=== PATIENT | female | born 1980 | race Caucasian/White ===

== ENCOUNTER 2016-09-22 18:29 | Emergency (ER) | payer BC ==
[2016-09-22] MEDS ORDERED: IV NORMAL SALINE 1000ML BAG 1,000 ML IV ONE (19:30)
[2016-09-22] MEDS ORDERED: ONDANSETRON PF 4 MG/2 ML VIAL. IV ONE (19:30)
[2016-09-22] MEDS ORDERED: HYDROMORPHONE 2 MG/ML VIAL. IV PRN (19:30)
[2016-09-22] MEDS: FENTANYL PF 100 MCG/2 ML VIAL. IV PRN ×2 (19:40→20:12)
[2016-09-22 19:45] LABS: NEG OBC UR NEG; POS OBC UR POS
[2016-09-22 19:47] LABS: BILIRUBIN,URINE NEGATIVE (NEG); GLUCOSE,URINE NEGATIVE (NEG); NITRITE,URINE NEGATIVE (NEG); PH,URINE 7.5; PROTEIN,URINE NEGATIVE (NEG-TRACE)
[2016-09-22] MEDS: HYDROMORPHONE 2 MG/ML VIAL. IV PRN ×2 (19:56→20:43)
[2016-09-22 20:03] LABS: BACTERIA,URINE 0 /HPF (0-FEW); RBC,URINE TNTC /HPF (0-2); SQUAMOUS EPITHELIAL CELL,UR MANY /LPF; WBC,URINE 0 /HPF (0-4)
[2016-09-22] MEDS ORDERED: HYDR-2666 PO (20:18)
--- NOTE | 2016-09-22 20:18 | PHYS DOC ---
Past Medical History Past Medical History: Other Additional Past Medical Histor: kidney stones Past Surgical History: Other Additional Past Surgical Histo: nephrostomy, left wrist Alcohol Use: None Drug Use: None Adult General Chief Complaint Chief Complaint: FLANK PAIN HPI HPI 36-year-old female presenting to the emergency department with right flank pain. Her pain is sharp severe intermittent and associated with mild hematuria. The pain radiates to the right groin. She was seen a few days ago in an urgent care and diagnosed with multiple kidney stones less than 5 mm. She denies nausea vomiting fevers or chills. Review of systems is negative for fevers chills chest pain shortness of breath. All other review of systems is negative unless otherwise noted in history of present illness. Review of Systems Review of Systems See above. Current Medications Current Medications Current Medications Medications (Trade) Dose Ordered Sig/Sheba Start Time Stop Time Status Last Admin Dose Admin Fentanyl Citrate (Fentanyl 2ml Vial) 50 mcg PRN Q30MIN PRN 09/22/16 19:30 09/22/16 20:12 50 MCG Hydromorphone HCl (Dilaudid) 0.5 mg PRN Q30MIN PRN 09/22/16 19:50 09/22/16 19:56 0.5 MG Ondansetron HCl 4 mg 4 mg 1X ONCE 09/22/16 19:30 09/22/16 19:31 DC 09/22/16 19:25 4 MG Sodium Chloride (Iv Sodium Chloride 0.9% 1000ml Bag) 1,000 ml @ 1,000 mls/hr 1X ONCE 09/22/16 19:30 09/22/16 20:29 DC 09/22/16 19:26 1,000 MLS/HR Allergies Allergies Allergies Coded Allergies Type Severity Reaction Last Updated Verified No Known Drug Allergies 07/17/14 No Physical Exam Physical Exam Constitutional: Well developed, well nourished, no acute distress, non-toxic appearance. [] HENT: Normocephalic, atraumatic, bilateral external ears normal, oropharynx moist, no oral exudates, nose normal. [] Eyes: PERRLA, EOMI, conjunctiva normal, no discharge. [] Neck: Normal range of motion, no tenderness, supple, no stridor. [] Cardiovascular:Heart rate regular rhythm, no murmur [] Lungs & Thorax: Bilateral breath sounds clear to auscultation [] Abdomen: Bowel sounds normal, soft, no tenderness, no masses, no pulsatile masses. [] Skin: Warm, dry, no erythema, no rash. [] Back: No tenderness, right cva tenderness Extremities: No tenderness, no cyanosis, no clubbing, ROM intact, no edema. [] Neurologic: Alert and oriented X 3, normal motor function, normal sensory function, no focal deficits noted. [] Psychologic: Affect normal, judgement normal, mood normal. [] Current Patient Data Vital Signs Vital Signs Date Time Temp Pulse Resp B/P Pulse Ox O2 Delivery O2 Flow Rate FiO2 09/22/16 20:20 96 20 123/83 96 Room Air 09/22/16 18:55 97.8 97.8 Lab Values Laboratory Tests Test 09/22/16 18:55 Urine Collection Type Unknown Urine Color Sobia Urine Clarity Cloudy Urine pH 7.5 Urine Specific [place] 1.025 Urine Protein Negativemg/dL (NEG-TRACE) Urine Glucose (UA) Negativemg/dL (NEG) Urine Ketones (Stick) Negativemg/dL (NEG) Urine Blood Large (NEG) Urine Nitrite Negative (NEG) Urine Bilirubin Negative (NEG) Urine Urobilinogen Dipstick 1.0mg/dL (0.2 mg/dL) Urine Leukocyte Esterase Trace (NEG) Urine RBC Tntc/HPF (0-2) Urine WBC 0/HPF (0-4) Urine Squamous Epithelial Cells Many/LPF Urine Bacteria 0/HPF (0-FEW) Urine Mucus Marked/LPF Urine Test Negative (NEG) EKG EKG [] Radiology/Procedures Radiology/Procedures [] Course & Med Decision Making Course & Med Decision Making Pertinent Labs and Imaging studies reviewed. (See chart for details) [] 36-year-old female presenting to the emergency department with flank pain and a history of nephrolithiasis. Vital signs showed tachycardia likely secondary to pain. Physical exam showed right CVA tenderness. Her pain was controlled with IV pain medications fluids. Urine testing was negative for . On reevaluation her pain improved she was subsequently discharged home with oral pain medication to follow-up with her primary care doctor over the next 2-3 days. Dragon Disclaimer Dragon Disclaimer This electronic medical record was generated, in whole or in part, using a voice recognition dictation system. Departure Departure Impression: Primary Impression: Flank pain Disposition: 01 HOME, SELF-CARE Condition: STABLE Referrals: NO PCP (PCP) MAE VICKERS MD Patient Instructions: Flank Pain Additional Instructions: Thank you for allowing us to participate in your care today. Followup with your primary care physician in 3 days if your symptoms do not improve. If you do not have a primary care provider you can ask for a list of our primary care providers. Return to the emergency department you have any new or concerning findings. This should be evaluated by the primary care physician and any necessary consulting services for continued management within a few days after discharge. Return to emergency room if you have any new or concerning symptoms including but not limited to fever, chills, nausea, vomiting, intractable pain, any new rashes, chest pain, shortness of air, uncontrolled bleeding, difficulty breathing, and/or vision loss. You may have been prescribed medication that can change in your level of thinking and ability to operate machinery. These medications include hydrocodone and Ativan. Also, Benadryl has been known to do this as well. Be sure to check with your pharmacist and ask if the medications you've prescribed can affect your level of consciousness. I recommend not operating heavy machinery or driving while on medication such as these. Scripts Hydrocodone Bit/Acetaminophen (Hydrocodone-Apap 5-325 )1 Each Tablet1 Tab PO PRN Q6HRS PRN PAIN #15 TAB Be careful as this medication may cause you to be drowsy or tired. Do not drive on this medication. Do not fill this medication if the patient has been prescribed opioids in the past 5 days. Prov:KENYON REGALADO MD 09/22/16 KENYON REGALADO MD Sep 22, 2016 20:18
[2016-09-22 20:20] VITALS: BP 123/83
== END 2016-09-22 21:03 | disposition home or self-care (01) ==
LOC: ER 18:29
DX: R10.9 Unspecified abdominal pain (principal); R31.9 Hematuria, unspecified; R00.0 Tachycardia, unspecified; Z87.442 Personal history of urinary calculi
CPT/HCPCS: 81001; 81025; 87086; 96361; 96374; 96375; 96376; 99285; J1170; J2405; J3010; J7030

== ENCOUNTER 2016-10-05 09:21 | Emergency (ER) | payer BC ==
[~2016-10-05 09:21] MED LIST: HYDR-2666 PO
[2016-10-05] MEDS ORDERED: IV NORMAL SALINE 1000ML BAG 1,000 ML IV SCH (10:10)
[2016-10-05] MEDS ORDERED: FENTANYL PF 100 MCG/2 ML VIAL. IV ONE (10:15)
[2016-10-05 10:42] LABS: BILIRUBIN,URINE NEGATIVE (NEG); GLUCOSE,URINE NEGATIVE (NEG); NITRITE,URINE NEGATIVE (NEG); PROTEIN,URINE NEGATIVE (NEG-TRACE); UROBILINOGEN,URINE 0.2 mg/dL (0.2 mg/dL)
[2016-10-05 10:48] LABS: NEG OBC UR NEG; POS OBC UR POS
[2016-10-05 10:55] LABS: BACTERIA,URINE MANY /HPF (0-FEW); RBC,URINE TNTC /HPF (0-2); SQUAMOUS EPITHELIAL CELL,UR MANY /LPF
[2016-10-05 11:05] VITALS: BP 112/68
[2016-10-05] MEDS ORDERED: KETOROLAC TROMETHAMINE 30 MG/ML SYRINGE. IV ONE (11:15)
[2016-10-05 11:20] LABS: BASO % 0 % (0-3); EOS % 1 % (0-3); HEMATOCRIT 39.7 % (36.0-47.0); HEMOGLOBIN 13.2 g/dL (12.0-15.5); LYMPH # 1.7 x10^3/uL (1.0-4.8); LYMPH % 19 % (24-48); MEAN CORPUSCULAR HEMOGLOBIN 31 pg (25-35); MEAN CORPUSCULAR HGB CONC 33 g/dL (31-37); MEAN CORPUSCULAR VOLUME 92 fL (79-100); MONO % 4 % (0-9); NEUT % 77 % (31-73); PLATELET COUNT 215 x10^3/uL (140-400); RED BLOOD COUNT 4.33 x10^6/uL (3.50-5.40); RED CELL DISTRIBUTION WIDTH 14.3 % (11.5-14.5); WHITE BLOOD COUNT 9.2 x10^3/uL (4.0-11.0)
[2016-10-05 11:31] LABS: CALCIUM 8.4 mg/dL (8.5-10.1); CREATININE 0.7 mg/dL (0.6-1.0); GFR 94.7; POTASSIUM 3.8 mmol/L (3.5-5.1)
[2016-10-05 11:37] LABS: ALBUMIN 3.8 g/dL (3.4-5.0); ALBUMIN/GLOBULIN RATIO 1.1 (1.0-1.7); TOTAL BILIRUBIN 0.2 mg/dL (0.2-1.0); TOTAL PROTEIN 7.2 g/dL (6.4-8.2)
--- NOTE | 2016-10-05 11:42 | PHYS DOC ---
Past Medical History Past Medical History: Other Additional Past Medical Histor: kidney stones Past Surgical History: Other Additional Past Surgical Histo: nephrostomy, left wrist Alcohol Use: None Drug Use: None Adult General Chief Complaint Chief Complaint: ABDOMINAL PAIN HPI HPI Patient is a 36 year old female who reports right flank pain for two days. States she was recently seen and diagnosed with 3 kidney stones and she has passed two but not the third. Reports vomiting yesterday without fever, dysuria , abdominal pain. No intervenitons prior to arrival. States Dr. Ireland is urologist Review of Systems Review of Systems Constitutional: Denies fever or chills Eyes: Denies change in visual acuity, redness, or eye pain HENT: Denies nasal congestion or sore throat Respiratory: Denies cough or shortness of breath Cardiovascular: No additional information not addressed in HPI GI: Denies abdominal pain, nausea, vomiting, bloody stools or diarrhea : Denies dysuria or hematuria. Flank pain Musculoskeletal: Denies back pain or joint pain Integument: Denies rash or skin lesions Neurologic: Denies headache, focal weakness or sensory changes Endocrine: Denies polyuria or polydipsia Current Medications Current Medications Current Medications Medications (Trade) Dose Ordered Sig/Sheba Start Time Stop Time Status Last Admin Dose Admin Fentanyl Citrate 50 mcg 50 mcg 1X ONCE 10/05/16 10:15 10/05/16 10:16 DC 10/05/16 10:19 50 MCG Hydromorphone HCl (Dilaudid) 1 mg 1X ONCE 10/05/16 11:45 10/05/16 11:54 DC Ketorolac Tromethamine (Toradol) 30 mg 1X ONCE 10/05/16 11:15 10/05/16 11:16 DC 10/05/16 11:07 30 MG Ondansetron HCl (Zofran) 4 mg 1X ONCE 10/05/16 11:45 10/05/16 11:46 DC Sodium Chloride (Iv Sodium Chloride 0.9% 1000ml Bag) 1,000 ml @ 1,000 mls/hr Q1H 10/05/16 10:10 10/05/16 11:09 DC 10/05/16 10:19 1,000 MLS/HR Allergies Allergies Allergies Coded Allergies Type Severity Reaction Last Updated Verified No Known Drug Allergies 07/17/14 No Physical Exam Physical Exam Constitutional: Well developed, well nourished, no acute distress, non-toxic appearance. HENT: Normocephalic, atraumatic, bilateral external ears normal, oropharynx moist, no oral exudates, nose normal. Eyes: PERRLA, EOMI, conjunctiva normal, no discharge. Neck: Normal range of motion, no tenderness, supple, no stridor. Lungs & Thorax: Bilateral breath sounds clear to auscultation Abdomen: Bowel sounds normal, soft, no tenderness, no masses, no pulsatile masses. Skin: Warm, dry, no erythema, no rash. Back: No tenderness. B/l CVA tenderness. Extremities: No tenderness, no cyanosis, no clubbing, ROM intact, no edema. [] Neurologic: Alert and oriented X 3, normal motor function, normal sensory function, no focal deficits noted. [] Psychologic: Affect normal, judgement normal, mood normal. [] Current Patient Data Vital Signs Vital Signs Date Time Temp Pulse Resp B/P Pulse Ox O2 Delivery O2 Flow Rate FiO2 10/05/16 11:05 90 20 112/68 98 Room Air 10/05/16 09:25 98.7 98.7 Lab Values Laboratory Tests Test 10/05/16 09:40 10/05/16 11:10 Urine Collection Type Unknown Urine Color [place] Urine Clarity Cloudy Urine pH 6.0 Urine Specific [place] 1.025 Urine Protein Negativemg/dL (NEG-TRACE) Urine Glucose (UA) Negativemg/dL (NEG) Urine Ketones (Stick) Negativemg/dL (NEG) Urine Blood Large (NEG) Urine Nitrite Negative (NEG) Urine Bilirubin Negative (NEG) Urine Urobilinogen Dipstick 0.2mg/dL (0.2 mg/dL) Urine Leukocyte Esterase Trace (NEG) Urine RBC Tntc/HPF (0-2) Urine WBC 1-4/HPF (0-4) Urine Squamous Epithelial Cells Many/LPF Urine Bacteria Many/HPF (0-FEW) Urine Mucus Marked/LPF Urine Test Negative (NEG) White Blood Count 9.2x10^3/uL (4.0-11.0) Red Blood Count 4.33x10^6/uL (3.50-5.40) Hemoglobin 13.2g/dL (12.0-15.5) Hematocrit 39.7% (36.0-47.0) Mean Corpuscular Volume 92fL (79-100) Mean Corpuscular Hemoglobin 31pg (25-35) Mean Corpuscular Hemoglobin Concent 33g/dL (31-37) Red Cell Distribution Width 14.3% (11.5-14.5) Platelet Count 215x10^3/uL (140-400) Neutrophils (%) (Auto) 77% (31-73) H Lymphocytes (%) (Auto) 19% (24-48) L Monocytes (%) (Auto) 4% (0-9) Eosinophils (%) (Auto) 1% (0-3) Basophils (%) (Auto) 0% (0-3) Neutrophils # (Auto) 7.1x10^3uL (1.8-7.7) Lymphocytes # (Auto) 1.7x10^3/uL (1.0-4.8) Monocytes # (Auto) 0.4x10^3/uL (0.0-1.1) Eosinophils # (Auto) 0.1x10^3/uL (0.0-0.7) Basophils # (Auto) 0.0x10^3/uL (0.0-0.2) Sodium Level 143mmol/L (136-145) Potassium Level 3.8mmol/L (3.5-5.1) Chloride Level 107mmol/L (98-107) Carbon Dioxide Level 25mmol/L (21-32) Anion Gap 11 (6-14) Blood Urea Nitrogen 12mg/dL (7-20) Creatinine 0.7mg/dL (0.6-1.0) Estimated GFR (Cockcroft-Gault) 94.7 BUN/Creatinine Ratio 17 (6-20) Glucose Level 93mg/dL (70-99) Calcium Level 8.4mg/dL (8.5-10.1) L Total Bilirubin 0.2mg/dL (0.2-1.0) Aspartate Amino Transferase (AST) 17U/L (15-37) Alanine Aminotransferase (ALT) 41U/L (14-59) Alkaline Phosphatase 71U/L (46-116) Total Protein 7.2g/dL (6.4-8.2) Albumin 3.8g/dL (3.4-5.0) Albumin/Globulin Ratio 1.1 (1.0-1.7) Laboratory Tests 10/05/16 11:10 Laboratory Tests 10/05/16 11:10 EKG EKG [] Radiology/Procedures Radiology/Procedures [] Impressions: 1. Elopement Course & Med Decision Making Course & Med Decision Making Pertinent Labs and Imaging studies reviewed. (See chart for details) 1131- Patient eloped. Throughout stay patient had multiple requests for pain medication. When discussed Toradol for mgmt, patient stated that never works. It was approx 5 mintues after I notified patient of CT she left the department. Dragon Disclaimer Dragon Disclaimer This electronic medical record was generated, in whole or in part, using a voice recognition dictation system. Departure Departure Impression: Primary Impression: Left against medical advice Disposition: 07 AGAINST MEDICAL ADVICE Referrals: NO PCP (PCP) DAMARIS HERNANDEZ APRN Oct 05, 2016 11:42
[2016-10-05] MEDS ORDERED: HYDROMORPHONE 2 MG/ML VIAL. IV ONE (11:45)
[2016-10-05] MEDS ORDERED: ONDANSETRON PF 4 MG/2 ML VIAL. IV ONE (11:45)
== END 2016-10-05 11:35 | disposition left against medical advice (07) ==
LOC: ER 09:21
DX: R10.9 Unspecified abdominal pain (principal); R11.10 Vomiting, unspecified; Z93.6 Other artificial openings of urinary tract status
CPT/HCPCS: 36415; 80053; 81001; 81025; 85027; 87086; 96361; 96374; 96375; 99284; J1885; J3010; J7030

== ENCOUNTER 2017-03-25 12:19 | Emergency (ER) | payer BC ==
[~2017-03-25] VITALS: Ht 180.3 cm; Wt 68.0 kg
[~2017-03-25 12:19] MED LIST changes: -HYDR-2666 PO; +HYDR-2758 PO
[2017-03-25 12:29] VITALS: BP 103/78
[2017-03-25 12:54] LABS: BILIRUBIN,URINE NEGATIVE (NEG); GLUCOSE,URINE NEGATIVE (NEG); NITRITE,URINE NEGATIVE (NEG); PROTEIN,URINE NEGATIVE (NEG-TRACE); UROBILINOGEN,URINE 0.2 mg/dL (0.2 mg/dL)
--- NOTE | 2017-03-25 13:03 | PHYS DOC ---
Past Medical History Past Medical History: Other Additional Past Medical Histor: kidney stones Past Surgical History: Other Additional Past Surgical Histo: nephrostomy, left wrist Alcohol Use: None Drug Use: None Adult General Chief Complaint Chief Complaint: FLANK PAIN HPI HPI Patient is a 36 year old female who presents ambulatory to the emergency department with the complaint of right flank pain since this morning. Patient states "I've got some kidney stone trouble". She states she has a history of kidney stones and has passed many kidney stones. She states that she just saw her urologist, Dr. Ireland, 2 days ago for a check. She was doing okay at that time. States he did an ultrasound in the office and said that she had some small kidney stones on the right that might pass soon or not so soon. Patient states last night [place]. She believe she probably is a little dehydrated. She started having some right flank pain this morning. She took 4 ibuprofen at 9:30 this morning area she passed one kidney stone at home and states that when she gave a urine sample, she did pass one here in the emergency department. Patient denies fever or chills. She's had some nausea and vomiting this morning. Patient denies the possibility of , she has had a uterine ablation and does not have menstrual periods, also her has had a vasectomy. Patient states that her parents drove her here today. Review of Systems Review of Systems Constitutional: Denies fever or chills [] Respiratory: Denies cough or shortness of breath [] GI: As in history of present illness : As in history of present illness Musculoskeletal: She complains of back pain but it is flank/groin in nature, not musculoskeletal pain. Allergies Allergies Allergies Coded Allergies Type Severity Reaction Last Updated Verified No Known Drug Allergies 07/17/14 No Physical Exam Physical Exam Constitutional: Well developed, well nourished, no acute distress, non-toxic appearance. Alert, mentating normally, appears somewhat agitated, pacing about, slightly diaphoretic, no vomiting or dry heaving while I was in the room. HENT: Normocephalic, atraumatic, bilateral external ears normal, nose normal. [ ] Eyes: conjunctiva normal, no discharge. [] Neck: Normal range of motion, no stridor. [] Cardiovascular:Heart rate regular rhythm, no murmur [] Lungs & Thorax: Bilateral breath sounds clear to auscultation [] Abdomen: Bowel sounds normal, soft, no tenderness, no masses, no pulsatile masses. [] Skin: Warm, dry, no erythema, no rash. [] Extremities: No tenderness, no cyanosis, no clubbing, ROM intact, no edema. [] Neurologic: Alert and oriented X 3, normal motor function, normal sensory function, no focal deficits noted. [] Current Patient Data Vital Signs Vital Signs Date Time Temp Pulse Resp B/P (MAP) Pulse Ox O2 Delivery O2 Flow Rate FiO2 03/25/17 12:29 98.6 122 24 103/78 (86) 99 Room Air 98.6 Lab Values Laboratory Tests Test 03/25/17 11:42 03/25/17 12:29 POC Urine HCG, Qualitative Hcg negative (Negative) Urine Collection Type Unknown Urine Color Yellow Urine Clarity Cloudy Urine pH 6.0 Urine Specific [place] 1.020 Urine Protein Negative mg/dL (NEG-TRACE) Urine Glucose (UA) Negative mg/dL (NEG) Urine Ketones (Stick) Negative mg/dL (NEG) Urine Blood Large (NEG) Urine Nitrite Negative (NEG) Urine Bilirubin Negative (NEG) Urine Urobilinogen Dipstick 0.2 mg/dL (0.2 mg/dL) Urine Leukocyte Esterase Moderate (NEG) Urine RBC Tntc /HPF (0-2) Urine WBC 0 /HPF (0-4) Urine Squamous Epithelial Cells Many /LPF Urine Bacteria Few /HPF (0-FEW) EKG EKG [] Radiology/Procedures Radiology/Procedures [] Course & Med Decision Making Course & Med Decision Making Pertinent Labs and Imaging studies reviewed. (See chart for details) 36-year-old female presents with right flank pain since this morning, states that she passed a kidney stone at home and when she gave a urine sample here states that she passed another stone, produced a urine specimen cup with urine and it and a small stone in the bottom. Patient states she took ibuprofen 800 mg at 9:30 this morning. She states she has a urologist and states that she called the on-call doctor this morning and was told that she probably better come to the ER. I reviewed the patient's record. I have [facility] this patient [facility] and she has been here for the complaint of flank pain a few times. On a recent visit to the ED, I was aware that the patient was given opiates for pain and ended up leaving without a ride and appeared per security personnel to get in a vehicle and drive herself away. I'm also aware of the patient's history that typically when she presents with the complaint of flank pain she produces a urine specimen that has a small stone in it. I discussed with the patient that I like to recommend a liter of IV fluids. I told her at this time I'm not comfortable giving her IV opiates because of her history of leaving and driving after opiate dosing in the ED. Patient did not denies that happening, but stated "you don't have to worry about that today because my parents drove me here". I advised her I would recommend an ultrasound today to evaluate for hydronephrosis, she has had many many CT scans and I prefer not to radiate her again. Patient states if I am not going to give her IV opiates for pain that she would like to just leave and " take the medicine I have at home". Previously, she had told me that she didn't have any medicine at home. The patient and I agreed that she would like to be discharged and would like to orally hydrate at home, manage her pain at home with ibuprofen, and contact her urologist. See instructions for plan. After the patient was discharged, security personnel observed her exit the hospital and get into her car in the parking lot and drive away. This is despite the patient's twice a starting to me that she was dropped off by her parents and that her parents would be taking her home. I did send the stone produced by the patient to pathology for stone analysis. [] Dragon Disclaimer Dragon Disclaimer This electronic medical record was generated, in whole or in part, using a voice recognition dictation system. Departure Departure Impression: Primary Impression: Flank pain Additional Impression: History of kidney stones Disposition: HOME, SELF-CARE Condition: STABLE Referrals: NO PCP (PCP) Patient Instructions: Flank Pain, [id number] Additional Instructions: Today I recommended that we give your IV fluids and get an ultrasound to see if there is backup of urine form a stone. You declined to have this done and prefer to go home. Drink plenty of fluids. Take Ibuprofen 800 mg every 6-8 hours to help with pain and help relax the ureter muscle. Talk to your urologist about having a plan of action for when you have flank pain so you can help manage your medical condition at home. Return if you have fever 100.4 or higher. Problem Qualifiers BENNIE POND MD Mar 25, 2017 13:03
[2017-03-25 13:22] LABS: BACTERIA,URINE FEW /HPF (0-FEW); RBC,URINE TNTC /HPF (0-2); SQUAMOUS EPITHELIAL CELL,UR MANY /LPF; WBC,URINE 0 /HPF (0-4)
== END 2017-03-25 13:09 | disposition home or self-care (01) ==
LOC: ER 12:19
DX: R10.9 Unspecified abdominal pain (principal); Z87.442 Personal history of urinary calculi; Z93.6 Other artificial openings of urinary tract status
CPT/HCPCS: 81001; 81025; 87086; 99284